=== PATIENT | female | born 1950 | race Caucasian/White ===

== ENCOUNTER → 2017-10-17 07:29 | Outpatient (CLI) | payer OTHER, SELFPAY ==
--- NOTE | 2017-10-17 07:37 | NM_ITS ---
CLINICAL: 67-year-old female with reported history of low back pain. WHOLE BODY 99m Tc MDP RADIONUCLIDE BONE SCINTIGRAPHY COMPARISON: None available FINDINGS: Following the intravenous administration of 25.2 mCi of 99m Tc MDP, whole body bone images reveal: 1. Innumerable foci of increased radiopharmaceutical concentration are demonstrated in the bilateral anterior and posterior ribs, fourth-12th thoracic vertebra, first-third and fifth lumbar vertebra, the left iliac wing, focally apparent in the right proximal humeral diaphysis, left parietal and right frontal, right temporal calvarium, right scapula, right mid femoral, left proximal femoral diaphyses. 2. Facilitated uptake is demonstrated in the acromioclavicular compartment of the right shoulder, bilateral hip articulations 3. The remaining skeletal structures are scintigraphically unremarkable with normal-appearing renal images and urinary bladder activity identified. NM/Bone Scan Whole Body IMPRESSION: 1. The increase in radiopharmaceutical concentration multifocally apparent in the axial, appendicular skeletal structures and bilateral hemicalvarium is commensurate with diffuse skeletal metastatic disease. 2. Degenerative arthritis appears evident in the right shoulder, right and left hip articulations. Electronically Signed: Peter Enrique DO at 12:23 EST Tel , Service support ,
== END ==
PROVIDERS: Family Provider Orthopaedic Surgery; PCP Orthopaedic Surgery; Visit Provider Anesthesiology Pain Medicine
DX: M48.56XA Collapsed vertebra, not elsewhere classified, lumbar region, initial encounter for fracture (principal)
CPT/HCPCS: 78306